=== PATIENT | male | born 1975 | race Caucasian/White ===

== ENCOUNTER 2020-09-26 21:31 | Observation (INO) | payer OTHER ==
[~2020-09-26 21:31] MED LIST: Iopamidol-370 76% 500 ML 1 ML ONE
[2020-09-26 22:08] LABS: #Lymphocytes 3.8 thou/uL (1.20-3.40); #Monocytes 0.7 thou/uL (0.11-0.59); #Neutrophils 8.6 thou/uL (1.40-6.50); %Basophils 0.1 % (0.0-1.0); %Eosinophils 0.4 % (0.0-10.0); %Lymphocytes 28.5 % (21.0-51.0); %Monocytes 5.6 % (0.0-10.0); %Neutrophils 65.4 % (42.0-75.0); Hemoglobin 15.2 g/dL (14.0-18.0); Mean Corpuscular HGB CONC 35.7 g/dL (32.0-36.0); Mean Corpuscular Hemoglobin 32.8 pg (27.0-31.0); Mean Corpuscular Volume 91.8 fL (78.0-98.0); Mean Platelet Volume 7.7 fL (7.4-10.4); Platelet Count 258 thou/uL (130-400); RBC Distribution Width 11.2 % (11.5-14.5); Red Blood Cell (RBC) Count 4.63 mill/uL (4.70-6.10); White Blood Cell (WBC) Count 13.2 thou/uL (4.8-10.8)
[2020-09-26] MEDS ORDERED: Morphine 4 MG/ML VIAL ONE (22:23)
[2020-09-26] MEDS ORDERED: Ondansetron PF 4 MG/2 ML Vial ONE (22:23)
[2020-09-26 22:28] LABS: ALT (SGPT) 40 U/L (8-55); AST (SGOT) 24 U/L (5-34); Albumin 4.3 g/dL (3.5-5.0); Alkaline Phosphatase 119 U/L (40-110); Anion Gap 17 mmol/L (10-20); BUN (Urea Nitrogen) 13 mg/dL (8.9-20.6); Bilirubin, Total 0.4 mg/dL (0.2-1.2); Calc. Creatinine Clearance 0 mL/min (70-130); Carbon Dioxide 21 mmol/L (22-29); Chloride 105 mmol/L (98-107); Estimated GFR-MDRD 77; Globulin 3.1 g/dL (2.4-3.5); Glucose 142 mg/dL (70-105); Lipase 18 U/L (8-78); Potassium 3.7 mmol/L (3.5-5.1); Protein, Total 7.4 g/dL (6.0-8.3); Sodium 139 mmol/L (136-145)
[2020-09-26] MEDS ORDERED: HYDROmorphone 0.5 MG/0.5 ML SYRINGE ONE (22:44)
[2020-09-26 22:54] LABS: Bilirubin Negative (Negative); Blood, Urine Negative (Negative); Clarity Clear (Clear); Glucose, Urine (Dipstick) Normal (Negative); Ketone, Urine 40 mg/dL (Negative); Leukocyte Negative Leu/uL (Negative); Nitrite Negative (Negative); Protein, Urine (Dipstick) Negative (Neg-Trace); Specific Gravity, Urine 1.021 (1.002-1.036); Urobilinogen Normal mg/dL (Less than 2); pH, Urine 6.5 (5.0-9.0)
--- NOTE | 2020-09-26 23:37 | CT ---
CT ABDOMEN AND PELVIS WITH IV CONTRAST: Date: 09/26/2020 PROVIDED CLINICAL HISTORY: Epigastric pain. FINDINGS: No comparisons. The visualized lung bases are free of significant opacity. There is an approximately 1.3 cm hyperdense mass arising from the lateral margin of the superior pole of the right kidney. 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 The solid abdominal organs demonstrate an otherwise unremarkable CT appearance. There is no bowel dilatation, inflammatory fat stranding, free fluid, or free air apparent. Regional major vascular structures appear unremarkable. The osseous structures demonstrate no concerning lytic or blastic lesions. IMPRESSION: 1. An etiology for the patient's abdominal pain is not evident on this examination. 2. 1.3 cm hyperdense right renal mass, enhancing neoplasm versus hyperdense cyst. The former is favo red. Nonemergent CT abdomen utilizing renal mass protocol is recommended. POS: LAKESHIA
[2020-09-27] MEDS ORDERED: Piperacillin/Tazobactam 3.375 GM VIAL ONE (00:49)
[2020-09-27] MEDS ORDERED: Ondansetron PF 4 MG/2 ML Vial IVP PRN (02:00)
[2020-09-27] MEDS ORDERED: Ondansetron ODT 4 MG TAB SL PRN (02:00)
[2020-09-27] MEDS: Lactated Ringer's 1,000 ML IV SCH ×3 (02:24→14:26)
[2020-09-27 02:29] VITALS: BMI 37.7
[2020-09-27 06:51] LABS: ALT (SGPT) 35 U/L (8-55); AST (SGOT) 25 U/L (5-34); Albumin 3.9 g/dL (3.5-5.0); Alkaline Phosphatase 104 U/L (40-110); Anion Gap 14 mmol/L (10-20); BUN (Urea Nitrogen) 9 mg/dL (8.9-20.6); Bilirubin, Total 0.6 mg/dL (0.2-1.2); Calc. Creatinine Clearance 184 mL/min (70-130); Calcium 8.6 mg/dL (7.8-10.44); Carbon Dioxide 23 mmol/L (22-29); Chloride 106 mmol/L (98-107); Estimated GFR-MDRD Greater than 90; Globulin 2.9 g/dL (2.4-3.5); Glucose 109 mg/dL (70-105); Potassium 3.6 mmol/L (3.5-5.1); Protein, Total 6.8 g/dL (6.0-8.3); Sodium 139 mmol/L (136-145)
--- NOTE | 2020-09-27 07:26 | ULT ---
PRELIMINARY REPORT/[facility]/EMERGENCY AFTER HOURS PROCEDURE EXAM: US Abdomen Limited, Right Upper Quadrant. CLINICAL HISTORY: HX: RUQ PAIN. SEE NOTES ON LAST IMAGE. THANKS TECHNIQUE: Real-time ultrasound of the right upper quadrant with image documentation. COMPARISON: None provided. FINDINGS: LIVER: The liver size is normal. The liver is fatty infiltrated. GALLBLADDER: No stones are identified. There is slight wall thickening measuring 4.7 mm. Minimal fluid identifie d near the gallbladder wall. The patient did have pain during the examination consistent with a positive sonographic Adan sign. COMMON BILE DUCT: No dilation. Measuring 4.4 mm PANCREAS: Unremarkable as visualized. The distal pancreas is obscured by overlying bowel gas. RIGHT KIDNEY: Unremarkable. No hydronephrosis. IMPRESSION: There is slight gallbladder wall thickening with minimal fluid around the gallbladder wall. No stone s are identified. Early inflammatory change of the gallbladder is possible. Further evaluation with HIDA scan may be appropriate. No evidence of ductal dilatation. The common bile duct measures 4.4 mm. Fatty infiltration of the liver. ELECTRONICALLY SIGNED BY: Chaya Hahn DO Sep 27, 2020 12:44:44 AM [employer] This report is intended for review by the ordering physician only, in accordance of law. If you recei ve this report in error, please call [facility] at [phone]. FINAL REPORT Final interpretation Right upper quadrant ultrasound: 09/26/2020 HISTORY: Right upper quadrant pain. FINDINGS: The pancreas is obscured by bowel gas. The hepatic parenchyma is heterogeneous and echogenic which ma y signify a degree of steatosis. The common bile duct measures 4-5 mm, within normal limits. Right kidney measures 11.8 cm in cranioca udal dimension and demonstrates no stone, hydronephrosis, or mass. The gallbladder wall is mildly thickened and the towing pilot reports a positive Adan's sign. No gal lstones are seen. IMPRESSION: Mild gallbladder wall thickening with positive Adan's sign. No gallstones are noted. Early gallblad anthony inflammatory change cannot be excluded. Follow-up with hepatobiliary scan advised as clinically warranted. Code QA Transcribed Date/Time: 09/27/2020 8:09 AM
[2020-09-27] MEDS ORDERED: Acetaminophen 325 MG TAB PO PRN ×2 (10:34)
[2020-09-27] MEDS: Piperacillin/Tazobactam 3.375 GM in Sodium Chloride 0.9% 100 ML IVPB SCH ×2 (11:41→18:25)
[2020-09-27] MEDS ORDERED: PROPOFOL 200 MG/20 ML VIAL ONE (12:42)
[2020-09-27] MEDS ORDERED: Lidocaine 1% PF 5 ML VIAL ONE (12:42)
[2020-09-27] MEDS ORDERED: Glycopyrrolate 0.2 MG/ML 5 ML SYRINGE ONE (12:42)
[2020-09-27] MEDS ORDERED: Dexamethasone 20 MG/5 ML VIAL ONE (12:42)
[2020-09-27] MEDS ORDERED: Rocuronium Bromide 10 MG/ML (10ML VIAL) ONE (12:42)
[2020-09-27] MEDS ORDERED: Ketorolac Tromethamine 30 MG/ML VIAL ONE (12:42)
[2020-09-27] MEDS ORDERED: Ondansetron PF 4 MG/2 ML Vial ONE (12:42)
[2020-09-27 16:22] LABS: SARS-CoV-2 MS2 Positive; SARS-CoV-2 N Gene Negative; SARS-CoV-2 S Gene Negative; SARS-CoV-2 by NAA Not Detected (NotDetected); SARS-CoV-2 orf1ab Negative
[2020-09-27] MEDS ORDERED: Bupivacaine 0.25% HCL 30 ML VIAL ONE (16:47)
[2020-09-27] MEDS ORDERED: Lidocaine 1% w/Epinephrine 1:100K 20 ML VIAL ONE (16:47)
[2020-09-27] MEDS ORDERED: Midazolam HCl 2 mg/2 ml Vial ONE (16:54)
[2020-09-27] MEDS ORDERED: Fentanyl 100 MCG/2 ML VIAL ONE (16:54)
[2020-09-27] MEDS ORDERED: Iothalamate Meglumine 60% 50 ML VIAL FS ONE (17:22)
[2020-09-27] MEDS ORDERED: PACU-Morphine 4MG/ML VIAL SLOW IVP PRN (17:52)
[2020-09-27] MEDS ORDERED: Promethazine HCl 25 MG/ML VIAL IM PRN (17:52)
[2020-09-27] MEDS ORDERED: Ondansetron HCl/PF 4 MG/2 ML Vial IVP PRN (17:52)
[2020-09-27] MEDS ORDERED: HYDROmorphone 2 MG/ML VIAL SLOW IVP PRN (17:52)
[2020-09-27] MEDS ORDERED: Promethazine HCl 25 MG/ML VIAL SLOW IVP PRN (17:52)
--- NOTE | 2020-09-27 18:18 | RAD ---
INTRAOPERATIVE CHOLANGIOGRAM: 09/27/20 PROVIDED CLINICAL HISTORY: Cholelithiasis. FINDINGS/IMPRESSION: Single spot fluoroscopic image of the right upper quadrant demonstrates opacification of the common d uct, partially visualized intrahepatic biliary system and duodenum. There is no evidence for filling defect involving the common duct. POS: LAKESHIA
[2020-09-27] MEDS ORDERED: HYDROcodone/Acetaminophen 5/325 mg Tablet PO PRN ×2 (18:32)
[2020-09-27] MEDS ORDERED: traMADol HCl 50 MG TAB PO PRN ×2 (18:32)
[2020-09-27] MEDS ORDERED: Ibuprofen 200 MG TAB PO PRN (18:33)
[2020-09-27] MEDS ORDERED: Ibuprofen 600 MG TAB PO PRN (18:33)
[2020-09-27] MEDS ORDERED: Ibuprofen 800 MG TAB PO PRN (18:33)
[2020-09-27] MEDS ORDERED: Promethazine 25 MG TAB PO PRN (18:36)
[2020-09-27 19:32] VITALS: BP 143/86; TEMP 97.7
--- NOTE | 2020-09-27 20:55 | PDOC.OP ---
Operative Note - Operative Note Operative Note: DATE OF PROCEDURE: 05/19/2020 PROCEDURES: Laparoscopic cholecystectomy with intraoperative cholangiogram. SURGEON: Jg Benavides M.D. PREOPERATIVE DIAGNOSIS: Acute cholecystitis POSTOPERATIVE DIAGNOSIS: Acute cholecystitis FINDINGS: Dilated edematous gallbladder with normal intraoperative cholangiogram HISTORY: Patient with signs and symptoms of acute cholecystitis. Laparoscopic cholecystectomy was recommended for symptomatic relief and prevention of future episodes. Intraoperative cholangiogram was also recommended due to elevated alkaline phosphatase. PROCEDURE: After informed consent was obtained and appropriate preoperative antibiotics were administered, the patient was taken to the operating room and placed in the supine position and general endotracheal anesthesia was administered. The stomach was decompressed with an OG tube and the abdomen was prepped and draped in standard sterile fashion. Local anesthesia was infused to the skin and subcutaneous tissues at the umbilical level. The patient was noted to have a small umbilical hernia containing preperitoneal fat only. A transverse skin incision was made. The fascia was elevated and a Veress needle was placed into the abdominal cavity without difficulty through the fascial defect. Opening pressure was less than 5 and carbon dioxide gas easily insufflated to an intra-abdominal pressure of 15, which the patient tolerated well. The Veress needle was withdrawn and a Lithium port advanced under direct vision with fascial defect. The abdominal cavity was carefully examined. There was no evidence of Veress needle or of trocar injury. Local anesthesia was infused to the skin and subcutaneous tissues at the epigastric, right upper quadrant, and right lateral abdominal sites and trocars were placed under direct vision of the laparoscope. The fundus of the gallbladder was grasped and retracted superiorly. The infundibulum was grasped and retracted laterally. The serosa was stripped inferiorly at the level of the neck of the gallbladder exposing the cystic duct and artery which were traced clearly to their insertion in the gallbladder. These were dissected free circumferentially and the cystic duct was clipped at the level of the neck of the gallbladder. The cystic artery was clipped but not divided. An incision was made in the cystic duct inferior to the clip and the cystic duct was palpated with no stones palpable. Clear bile was seen to flow from the cystic duct incision. A cholangiogram catheter was introduced and placed into the cystic duct and secured with a clip. A cholangiogram was obtained which showed an adequate length of cystic duct. There was normal filling of the common bile duct with free flow of contrast into the duodenum. There was normal retrograde flow into the common hepatic duct beyond the level of the bifurcation without filling defects. The cholangiogram catheter was removed and the cystic duct clipped below the incision in the cystic duct. The cystic duct was divided between these clips and the previously placed clip. The cystic artery was clipped and divided between the previously placed clips. The gallbladder was then dissected free of the gallbladder bed using hook electrocautery. Prior to complete removal of the gallbladder from the gallbladder bed, the area of the cystic duct and artery stumps was examined. The clips were in good position completely across these structures and there was no bleeding and no leakage of bile. The gallbladder was then placed into an EndoCatch bag and drawn out through the epigastric incision. The epigastric trocar was replaced and the operative site easily irrigated to clear. There was no significant bleeding or spillage of bile. The epigastric trocar was removed and the fascia closed under direct laparoscopic vision with a 0 Vicryl suture on a GraNee needle in a [id number] manner with excellent technical result. The right upper quadrant and right lateral abdominal trocars were removed and hemostasis verified. Carbon dioxide gas was allowed to desufflate through the umbilical trocar which was then removed. The edges of the umbilical hernia defect were cleaned up and the preperitoneal fat dunked into the preperitoneal space. The fascial edges were closed with 0 Vicryl suture under direct vision with excellent closure of the umbilical defect. The skin incisions were closed with 4-0 subcuticular Monocryl sutures and Dermabond dressings were placed. The patient was extubated and taken to the recovery room in good condition. There were no complications. ESTIMATED BLOOD LOSS: Minimal. SPECIMEN : Gallbladder and contents.
--- NOTE | 2020-09-28 07:42 | HP ---
CHIEF COMPLAINT: Abdominal pain. HISTORY OF PRESENT ILLNESS: Mr. Nickesron is a 45-year-old man who was in his usual state of health until . He states that he had some minor pain in his upper abdomen on morning, ate a light breakfast and a light lunch and did okay, but then after having a normal-sized Thanksgiving dinner, he had severe pain and nausea and vomiting as well. He denies any fevers or chills. He went to bed, and he woke up the next morning, feeling normal. Again, he had a light breakfast and a light lunch and then after having what he considers a normal dinner, he had onset of severe upper abdominal pain in the subxiphoid area, accompanied by severe nausea and vomiting. His primary care doctor called in some Zofran for him, but that did not really help, so he came to the emergency room where he was diagnosed with cholecystitis based on an ultrasound of his gallbladder showing wall thickening and pericholecystic fluid and tenderness over his gallbladder on exam. CT did not show any remarkable findings in the abdomen. White count was mildly elevated. LFTs were almost normal except for a mildly elevated alkaline phosphatase. He does not have any history of previous similar episodes. Pain was definitely related to eating and not activity. PAST MEDICAL HISTORY: None. PAST SURGICAL HISTORY: No abdominal surgery. He did have surgery on his nose. SOCIAL HISTORY: The patient does not smoke, drink, or use illicit drugs. 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 ALLERGIES: HE HAS NO KNOWN DRUG ALLERGIES. MEDICATIONS: Takes no medications on a regular basis. He received Zosyn, Dilaudid, Zofran, and morphine in the emergency room with resolution of his pain. FAMILY HISTORY: Colon cancer in father as well as diabetes, hypertension and heart disease. History of sarcoma in his mother, which metastasized to the lungs as well as diabetes and hypertension. HEALTH MAINTENANCE: The patient has had three normal colonoscopies and is colonoscopy. REVIEW OF SYSTEMS: Ten system review of systems is negative except per HPI. PHYSICAL EXAMINATION: VITAL SIGNS: The patient has been afebrile since admission. Heart rate is 65, respirations 16, 97% saturated on room air, blood pressure 147/79. GENERAL: Reveals a healthy-appearing man, in no acute distress. He is not flushed or toxic in appearance. He is not jaundiced or icteric. HEENT: Unremarkable. NECK: Supple without lymphadenopathy or thyroid nodules. HEART: Regular in its rate and rhythm without murmurs, rubs, or gallops. LUNGS: Clear to auscultation bilaterally, and he can take a deep breath without pain. ABDOMEN: Soft, nontender, and nondistended. He has a small umbilical hernia. No palpable masses. Negative Adan sign. EXTREMITIES: Warm, well perfused without edema. NEURO: No focal deficits. PSYCHIATRIC: Alert, oriented, and appropriate. IMAGING: Ultrasound is reviewed, and I agree with the written report. CT is reviewed, and I agree with the written report. He incidentally had a small right kidney mass of which he is aware that he will need followup. LABORATORY DATA: White count is elevated at 13,000 with a slight left shift, hematocrit 42, platelets 258. Electrolytes are unremarkable. Repeat LFTs . ASSESSMENT: Likely acalculous cholecystitis. Possibility of choledocholithiasis cannot be completely excluded. His alkaline phosphatase was mildly elevated, but has come down to normal, and his other LFTs are normal. Given the intermittent nature of his pain, however, stone disease is still possible. I recommended laparoscopic cholecystectomy for symptomatic relief with cholangiogram to evaluate the common bile duct. Alternative treatments of antibiotics and observation as well. The patient has decided to proceed with surgery. Apparent risks of surgery were discussed with the patient and his . These risks include, but are not limited to, bleeding, infection, risks of anesthesia, damage to nearby structures, bile duct, need for open surgery, need for other procedures. He understands and accepts these risks and wishes to proceed. He is on scheduled antibiotics and has been operating room. All of his questions were answered. Job ID: [id number]
== END 2020-09-27 22:50 | disposition home or self-care (01) ==
LOC: ERS 21:31 → SURG A 09-27 00:26
PROVIDERS: ADMIT Surgery; ATTEND Surgery
PROC: 0FT44ZZ Resection of Gallbladder, Percutaneous Endoscopic Approach (ICD-10-PCS; principal; 2020-09-27)
PROC: BF101ZZ Fluoroscopy of Bile Ducts using Low Osmolar Contrast (ICD-10-PCS; 2020-09-27)
DX: K80.12 Calculus of gallbladder with acute and chronic cholecystitis without obstruction (principal); N28.89 Other specified disorders of kidney and ureter; Z79.899 Other long term (current) drug therapy; Z20.828 Contact with and (suspected) exposure to other viral communicable diseases
CPT/HCPCS: 36415; 47532; 74177; 76705; 80053; 81003; 83690; 84478; 84484; 85025; 87635; 88304; 93005; 96365; 96375; G0378; J1100; J1170; J1610; J1885; J2250; J2270; J2405; J2543; J2704; J3010; J3490; Q9967; S0020; U0003

== ENCOUNTER 2020-10-30 10:18 | Outpatient (CLI) | payer OTHER ==
[2020-10-31 02:12] LABS: SARS-CoV-2 MS2 Positive; SARS-CoV-2 N Gene Negative; SARS-CoV-2 S Gene Negative; SARS-CoV-2 by NAA Not Detected (NotDetected); SARS-CoV-2 orf1ab Negative
== END 2020-10-30 10:19 | disposition home or self-care (01) ==
LOC: LABBT 10:18
PROVIDERS: ATTEND Urology
DX: Z01.812 Encounter for preprocedural laboratory examination (principal); Z20.828 Contact with and (suspected) exposure to other viral communicable diseases
CPT/HCPCS: 87635; U0003

== ENCOUNTER 2020-11-03 08:16 | Day surgery (SDC) | payer OTHER ==
[2020-10-29 11:54] VITALS: BMI 36.6
[2020-11-03 09:05] LABS: #Eosinphils 0.4 thou/uL (0.0-0.7); #Lymphocytes 3.1 thou/uL (1.20-3.40); #Monocytes 0.7 thou/uL (0.11-0.59); #Neutrophils 3.5 thou/uL (1.40-6.50); %Basophils 0.5 % (0.0-1.0); %Eosinophils 5.7 % (0.0-10.0); %Monocytes 8.6 % (0.0-10.0); %Neutrophils 45.2 % (42.0-75.0); Hemoglobin 15.1 g/dL (14.0-18.0); Mean Corpuscular HGB CONC 32.9 g/dL (32.0-36.0); Mean Corpuscular Hemoglobin 30.6 pg (27.0-31.0); Mean Corpuscular Volume 93.3 fL (78.0-98.0); Mean Platelet Volume 7.4 fL (7.4-10.4); Platelet Count 269 thou/uL (130-400); RBC Distribution Width 11.2 % (11.5-14.5); Red Blood Cell (RBC) Count 4.93 mill/uL (4.70-6.10); White Blood Cell (WBC) Count 7.8 thou/uL (4.8-10.8)
[2020-11-03 09:14] LABS: INR-International Normal Ratio 0.9; Prothrombin Time 12.4 sec (12.0-14.7)
[2020-11-03 10:02] VITALS: BP 140/87; TEMP 98.8
--- NOTE | 2020-11-03 11:27 | CT ---
CT-guided right renal mass biopsy Conscious sedation: At least 45 minutes spent with the patient for conscious sedation. HISTORY: Kidney mass. FINDINGS: After explaining the procedure and answering all questions, limited CT imaging of the abdom en was performed with patient in NAVARRO position. Sterile technique, buffered local anesthesia, CT guidance, conscious sedation, and a right posterior approach were used to carefully advance a 19-gauge trocar needle to abut the exophytic mass at the superior pole right kidney. Position was confirmed with CT. A total of 2 20-gauge specimens were obta ined. The same technique was then used to place a 17-gauge trocar needle with CT guidance to the level of the mass. Position confirmed. A total of 2 18-gauge specimens were obtained. All tissue was sent to pathology for evaluation. Needle was removed. Postprocedure images show small amount of hyperdense blood around the area of bio psy. Patient tolerated the procedure well and was returned to the holding area in good condition for furth er monitoring. IMPRESSION : Technically successful CT-guided biopsy right renal mass. Pathology pending.
--- NOTE | 2020-11-05 10:48 | CT ---
CT-guided right renal mass biopsy Conscious sedation: At least 45 minutes spent with the patient for conscious sedation. HISTORY: Kidney mass. FINDINGS: After explaining the procedure and answering all questions, limited CT imaging of the abdom en was performed with patient in NAVARRO position. Sterile technique, buffered local anesthesia, CT guidance, conscious sedation, and a right posterior approach were used to carefully advance a 19-gauge trocar needle to abut the exophytic mass at the superior pole right kidney. Position was confirmed with CT. A total of 2 20-gauge specimens were obta ined. The same technique was then used to place a 17-gauge trocar needle with CT guidance to the level of the mass. Position confirmed. A total of 2 18-gauge specimens were obtained. All tissue was sent to pathology for evaluation. Needle was removed. Postprocedure images show small amount of hyperdense blood around the area of bio psy. Patient tolerated the procedure well and was returned to the holding area in good condition for furth er monitoring. IMPRESSION : Technically successful CT-guided biopsy right renal mass. Pathology pending. Transcribed Date/Time: 11/05/2020 10:48 AM
== END 2020-11-03 12:35 | disposition home or self-care (01) ==
LOC: CT 08:16
PROVIDERS: ATTEND Urology
PROC: 0TB03ZX Excision of Right Kidney, Percutaneous Approach, Diagnostic (ICD-10-PCS; principal; 2020-11-03)
PROC: BT21ZZZ Computerized Tomography (CT Scan) of Right Kidney (ICD-10-PCS; principal; 2020-11-03)
DX: D49.511 Neoplasm of unspecified behavior of right kidney (principal); J30.2 Other seasonal allergic rhinitis; Z79.899 Other long term (current) drug therapy
CPT/HCPCS: 36415; 50200; 77012; 85025; 85610; 85730; 88305; 88341; 88342

== ENCOUNTER 2021-04-07 12:31 | Outpatient (CLI) | payer OTHER | END 2021-04-07 12:32 | disposition home or self-care (01) | LOC: BICCT 12:31 | PROVIDERS: ATTEND Urology | DX: C64.9 Malignant neoplasm of unspecified kidney, except renal pelvis (principal); D17.71 Benign lipomatous neoplasm of kidney; N28.89 Other specified disorders of kidney and ureter | CPT/HCPCS: 74170 ==

== ENCOUNTER 2021-05-05 08:07 | Outpatient (CLI) | payer OTHER | END 2021-05-05 08:08 | disposition home or self-care (01) | LOC: LABBT 08:07 | PROVIDERS: ATTEND Urology | DX: Z01.818 Encounter for other preprocedural examination (principal); C64.9 Malignant neoplasm of unspecified kidney, except renal pelvis; E66.01 Morbid (severe) obesity due to excess calories | CPT/HCPCS: 71046; 80048; 81001; 85027; 85610; 85730; 86850; 86900; 86901; 87086; 93005; 93010 ==

== ENCOUNTER 2021-05-07 05:54 | Inpatient (IN) | payer OTHER ==
[2021-05-05 09:48] LABS: Hemoglobin 14.4 g/dL (13.5-17.5); Mean Corpuscular HGB CONC 33.8 g/dL (32.0-36.0); Mean Corpuscular Hemoglobin 31.9 pg (27.0-33.0); Mean Corpuscular Volume 94.5 fl (81.2-95.1); Mean Platelet Volume 10.6 fl (7.4-10.4); Platelet Count 228 10x3/uL (150-450); RBC Distribution Width 12.3 % (11.5-14.5); Red Blood Cell (RBC) Count 4.51 10x6/uL (4.32-5.72)
[2021-05-05 09:59] LABS: Bilirubin Neg (Negative); Blood, Urine Negative (Negative); Clarity Clear (Clear); Glucose, Urine (Dipstick) Normal (Negative); Ketone, Urine Negative (Negative); Leukocyte 25 (Negative); Nitrite Negative (Negative); Protein, Urine (Dipstick) Negative (Neg-Trace); Urobilinogen Normal mg/dL (Less than 2)
[2021-05-05 10:08] LABS: INR-International Normal Ratio 0.9; PTT 27.3 sec (22.0-33.0); Prothrombin Time 10.3 sec (9.5-12.1)
[2021-05-05 10:09] LABS: Bacteria/HPF None Seen HPF (None Seen); RBC/HPF 0-3 HPF (0-3); Squamous Epithelial 0-3 HPF (0-3)
[2021-05-05 10:18] LABS: Anion Gap 14 mmol/L (10-20); BUN (Urea Nitrogen) 16 mg/dL (8.9-20.6); Calc. Creatinine Clearance 0 mL/min (70-130); Carbon Dioxide 24 mmol/L (22-29); Chloride 107 mmol/L (98-107); Glucose 98 mg/dL (70-105); Potassium 4.8 mmol/L (3.5-5.1); Sodium 140 mmol/L (136-145)
[2021-05-05 11:35] LABS: Calcium 9.5 mg/dL (7.8-10.44)
[2021-05-07] MEDS ORDERED: Midazolam HCl 2 mg/2 ml Vial ONE (06:52)
[2021-05-07] MEDS ORDERED: Fentanyl 100 MCG/2 ML VIAL ONE ×3 (06:52→07:37)
[2021-05-07] MEDS ORDERED: diphenhydrAMINE 50 MG/ML VIAL IM PRN (07:30)
[2021-05-07] MEDS ORDERED: diphenhydrAMINE 50 MG/ML VIAL IVP PRN (07:30)
[2021-05-07] MEDS ORDERED: Zolpidem Tartrate 5 MG TAB PO PRN (07:30)
[2021-05-07] MEDS ORDERED: diphenhydrAMINE 25 MG CAP PO PRN (07:30)
[2021-05-07] MEDS ORDERED: Naloxone HCl 0.4 mg/ml Vial IVP PRN (07:30)
[2021-05-07] MEDS ORDERED: Ketorolac Tromethamine 30 MG/ML VIAL IVP PRN (07:30)
[2021-05-07] MEDS ORDERED: fentaNYL Citrate/PF 500 MCG, Bupivacaine 10 ML in Sodium Chloride 0.9% 80 ML EPIDURAL SCH (07:30)
[2021-05-07] MEDS ORDERED: Promethazine HCl 25 MG/ML VIAL IM PRN (07:30)
[2021-05-07] MEDS ORDERED: Bupivacaine 0.25% 10 ML VIAL EPIDURAL PRN (07:30)
[2021-05-07] MEDS ORDERED: Promethazine HCl 25 MG SUPP PR PRN (07:30)
[2021-05-07] MEDS ORDERED: traMADol HCl 50 MG TAB PO PRN ×2 (07:30)
[2021-05-07] MEDS ORDERED: HYDROcodone/Acetaminophen 5/325 mg Tablet PO PRN ×2 (07:30)
[2021-05-07] MEDS ORDERED: Ondansetron PF 4 MG/2 ML Vial IVP PRN (07:30)
[2021-05-07] MEDS ORDERED: Hydrocerin (Eucerin) Cream 120 gm Jar TOP PRN (07:30)
[2021-05-07] MEDS ORDERED: Naloxone HCl 0.4 mg/ml Vial IV PRN (07:30)
[2021-05-07] MEDS ORDERED: Dexamethasone 20 MG/5 ML VIAL ONE (07:34)
[2021-05-07] MEDS ORDERED: PROPOFOL 200 MG/20 ML VIAL ONE (07:34)
[2021-05-07] MEDS ORDERED: ePHEDrine Sulfate 50 MG/10 ML VIAL ONE (07:34)
[2021-05-07] MEDS ORDERED: PHENYLEPHRINE-NS 100 MCG/ML 10 ML SYRINGE ONE (07:34)
[2021-05-07] MEDS ORDERED: Rocuronium Bromide 10 MG/ML (10ML VIAL) ONE (07:34)
[2021-05-07] MEDS ORDERED: Glycopyrrolate 0.2 MG/ML 5 ML SYRINGE ONE (07:34)
[2021-05-07] MEDS ORDERED: Ondansetron PF 4 MG/2 ML Vial ONE (07:34)
[2021-05-07] MEDS ORDERED: Vecuronium 10 MG VIAL ONE (07:34)
[2021-05-07] MEDS ORDERED: Lidocaine 1.5% w/Epi 1:200K 30 ML VIAL (Epid Use) ONE (07:34)
[2021-05-07] MEDS ORDERED: Ropivacaine 0.2% HCl/PF 20 ML ONE (07:53)
[2021-05-07] MEDS ORDERED: Lidocaine 1% w/Epinephrine 1:100K 20 ML VIAL ONE (08:14)
[2021-05-07] MEDS ORDERED: Bupivacaine 0.25% HCL 30 ML VIAL ONE (08:14)
[2021-05-07] MEDS ORDERED: Sodium Chloride 0.9% 10 ML ONE (09:49)
[2021-05-07] MEDS ORDERED: Mag-Al 1200 mg/1200 mg/30 ML UDCUP PO PRN (11:56)
[2021-05-07] MEDS ORDERED: Bisacodyl 10 MG SUPP PR PRN (11:56)
[2021-05-07] MEDS ORDERED: hydrALAZINE 20 MG/ML VIAL SLOW IVP PRN (11:56)
[2021-05-07] MEDS ORDERED: Ketorolac Tromethamine 30 MG/ML VIAL ONE (11:56)
[2021-05-07 12:37] LABS: #Lymphocytes 0.7 thou/uL (1.20-3.40); #Monocytes 0.3 thou/uL (0.11-0.59); #Neutrophils 17.8 thou/uL (1.40-6.50); %Basophils 0.1 % (0.0-1.0); %Lymphocytes 3.9 % (21.0-51.0); %Monocytes 1.4 % (0.0-10.0); %Neutrophils 94.5 % (42.0-75.0); Hemoglobin 14.4 g/dL (14.0-18.0); Mean Corpuscular HGB CONC 36.2 g/dL (32.0-36.0); Mean Corpuscular Hemoglobin 34.7 pg (27.0-31.0); Mean Corpuscular Volume 95.9 fL (78.0-98.0); Mean Platelet Volume 7.8 fL (7.4-10.4); Platelet Count 207 thou/uL (130-400); RBC Distribution Width 11.5 % (11.5-14.5); Red Blood Cell (RBC) Count 4.14 mill/uL (4.70-6.10); White Blood Cell (WBC) Count 18.8 thou/uL (4.8-10.8)
[2021-05-07 12:52] LABS: Anion Gap 14 mmol/L (10-20); BUN (Urea Nitrogen) 10 mg/dL (8.9-20.6); Calc. Creatinine Clearance 147 mL/min (70-130); Calcium 8.7 mg/dL (7.8-10.44); Carbon Dioxide 21 mmol/L (22-29); Chloride 103 mmol/L (98-107); Glucose 194 mg/dL (70-105); Potassium 4.3 mmol/L (3.5-5.1); Sodium 134 mmol/L (136-145)
[2021-05-07] MEDS ORDERED: Acetaminophen 500 MG TAB ONE ×2 (16:50→16:51)
[2021-05-07] MEDS: Sodium Chloride 0.9% 1,000 ML IV SCH (18:22)
[2021-05-07] MEDS: CEFAZOLIN 1 GM in Sodium Chloride 0.9% 100 ML IVPB SCH ×2 (18:22→21:11)
[2021-05-07] MEDS: Acetaminophen 500 MG TAB PO PRN (19:28)
[2021-05-07] MEDS: Docusate 100 MG CAP PO SCH (21:10)
[2021-05-07 21:28] VITALS: BMI 30.4
[2021-05-08] MEDS: Sodium Chloride 0.9% 1,000 ML IV SCH (02:33)
[2021-05-08] MEDS: Acetaminophen 500 MG TAB PO PRN (02:33)
[2021-05-08] MEDS: CEFAZOLIN 1 GM in Sodium Chloride 0.9% 100 ML IVPB SCH (05:15)
[2021-05-08 05:33] LABS: #Eosinphils 0.3 thou/uL (0.0-0.7); #Lymphocytes 2.3 thou/uL (1.20-3.40); #Monocytes 1.3 thou/uL (0.11-0.59); #Neutrophils 10.4 thou/uL (1.40-6.50); %Basophils 0.3 % (0.0-1.0); %Eosinophils 1.8 % (0.0-10.0); %Lymphocytes 16.4 % (21.0-51.0); %Monocytes 9.1 % (0.0-10.0); %Neutrophils 72.4 % (42.0-75.0); Hemoglobin 12.8 g/dL (14.0-18.0); Mean Corpuscular HGB CONC 35.3 g/dL (32.0-36.0); Mean Corpuscular Volume 96.4 fL (78.0-98.0); Platelet Count 197 thou/uL (130-400); RBC Distribution Width 11.5 % (11.5-14.5); Red Blood Cell (RBC) Count 3.77 mill/uL (4.70-6.10); White Blood Cell (WBC) Count 14.3 thou/uL (4.8-10.8)
[2021-05-08 05:55] LABS: Anion Gap 11 mmol/L (10-20); BUN (Urea Nitrogen) 8 mg/dL (8.9-20.6); Calc. Creatinine Clearance 140 mL/min (70-130); Calcium 8.5 mg/dL (7.8-10.44); Carbon Dioxide 23 mmol/L (22-29); Chloride 106 mmol/L (98-107); Glucose 116 mg/dL (70-105); Potassium 3.8 mmol/L (3.5-5.1); Sodium 136 mmol/L (136-145)
[2021-05-08] MEDS ORDERED: HYDROcodone/Acetaminophen 5/325 mg Tablet PO PRN (06:01)
[2021-05-08] MEDS ORDERED: fentaNYL Citrate/PF 500 MCG, Bupivacaine 10 ML in Sodium Chloride 0.9% 80 ML EPIDURAL SCH (06:15)
[2021-05-08] MEDS: HYDROcodone/Acetaminophen 5/325 mg Tablet PO PRN ×2 (06:17→11:10)
[2021-05-08] MEDS ORDERED: traMADol HCl 50 MG TAB PO PRN ×2 (07:57→07:58)
[2021-05-08] MEDS: Docusate 100 MG CAP PO SCH (08:33)
[2021-05-08 16:24] VITALS: BP 131/81; TEMP 98.9
== END 2021-05-08 19:00 | disposition home or self-care (01) | DRG 658 ==
LOC: SDC 05:54 → SURG B 11:40 → OBSVTOIN 11:40 → EEVIPCON 11:40
PROVIDERS: ADMIT Urology; ATTEND Urology
PROC: 0TB04ZZ Excision of Right Kidney, Percutaneous Endoscopic Approach (ICD-10-PCS; principal; 2021-05-07)
PROC: 8E0W4CZ Robotic Assisted Procedure of Trunk Region, Percutaneous Endoscopic Approach (ICD-10-PCS; 2021-05-07)
DX: C64.1 Malignant neoplasm of right kidney, except renal pelvis (principal); E66.01 Morbid (severe) obesity due to excess calories; Z68.30 Body mass index [BMI] 30.0-30.9, adult; Z90.49 Acquired absence of other specified parts of digestive tract; Z89.029 Acquired absence of unspecified finger(s); Z83.3 Family history of diabetes mellitus; Z82.49 Family history of ischemic heart disease and other diseases of the circulatory system
CPT/HCPCS: 36415; 71045; 71046; 80048; 81001; 85025; 85027; 85610; 85730; 86850; 86900; 86901; 87086; 88307; 93005; J0690; J1100; J1885; J2001; J2250; J2405; J2704; J2795; J3010; J3490; S0020

== ENCOUNTER 2021-12-28 07:38 | Outpatient (CLI) | payer BC | END 2021-12-28 07:39 | disposition home or self-care (01) | LOC: CT 07:38 | PROVIDERS: ATTEND Urology | DX: C64.9 Malignant neoplasm of unspecified kidney, except renal pelvis (principal); Z98.890 Other specified postprocedural states | CPT/HCPCS: 71046; 74170 ==

== ENCOUNTER 2022-12-17 15:36 | Outpatient (CLI) | payer BC | END 2022-12-17 15:37 | disposition home or self-care (01) | LOC: BICULT 15:36 | PROVIDERS: ATTEND Urology | DX: C64.9 Malignant neoplasm of unspecified kidney, except renal pelvis (principal) | CPT/HCPCS: 76770 ==

== ENCOUNTER 2022-12-27 14:37 | Outpatient (CLI) | payer BC | END 2022-12-27 14:38 | disposition home or self-care (01) | LOC: BICRAD 14:37 | PROVIDERS: ATTEND Urology | DX: C64.9 Malignant neoplasm of unspecified kidney, except renal pelvis (principal) | CPT/HCPCS: 71046 ==

== ENCOUNTER 2023-12-28 15:12 | Outpatient (CLI) | payer BC | END 2023-12-28 15:13 | disposition home or self-care (01) | LOC: ULT 15:12 | PROVIDERS: ATTEND Urology | DX: C64.9 Malignant neoplasm of unspecified kidney, except renal pelvis (principal) | CPT/HCPCS: 76770 ==

== ENCOUNTER 2025-09-05 14:17 | Outpatient (CLI) | payer BC | END 2025-09-05 14:18 | disposition home or self-care (01) | LOC: SCSMRI 14:17 | PROVIDERS: ATTEND Orthopaedic Surgery | DX: M23.92 Unspecified internal derangement of left knee (principal); S83.412A Sprain of medial collateral ligament of left knee, initial encounter ==